=== PATIENT | male | born 1955 | race African-American/Black ===

== ENCOUNTER 2020-01-13 21:20 | Emergency (ER) | payer OTHER ==
[~2020-01-13] VITALS: Ht 177.8 cm; Wt 91.0 kg
[2020-01-13 22:45] VITALS: BP 110/64
[2020-01-13] MEDS ORDERED: DIPHENHYDRAMINE 25MG CAPSULE PO ONE (23:45)
[2020-01-13] MEDS ORDERED: ACETAMINOPHEN 325MG TABLET PO ONE (23:45)
== END 2020-01-14 00:25 | disposition home or self-care (01) ==
LOC: ER 21:20
DX: M25.521 Pain in right elbow (principal); R21 Rash and other nonspecific skin eruption; I10 Essential (primary) hypertension; Z98.890 Other specified postprocedural states; Z88.0 Allergy status to penicillin
CPT/HCPCS: 99283; Q0163

== ENCOUNTER 2022-11-01 08:39 | Emergency (ER) | payer MEDICARE, OTHER ==
[~2022-11-01] VITALS: Ht 177.8 cm; Wt 115.0 kg
[2022-11-01 09:10] VITALS: TEMP 98.7; O2SAT 100
[2022-11-01 12:00] VITALS: BP 133/68; PULSE 95; RESP 17
[2022-11-01] MEDS ORDERED: PHENYLEPHRINE/SHK LV/MO/PET RECTAL OINTMENT 57GM PR SCH (12:00)
[2022-11-01] MEDS ORDERED: KETOROLAC 30MG/ML VIAL IM ONE (12:00)
[2022-11-01] MEDS ORDERED: PHENYLEPH/PRAMOXIN/GLYCR/PET RECTAL CREAM 26GM PR NR (12:15)
[2022-11-01 12:42] LABS: BASOPHILS % 0.8 % (0.0-2.0); EOSINOPHILS % 0.4 % (0.0-5.0); HEMATOCRIT. 39.8 % (42.0-52.0); HEMOGLOBIN. 13.3 g/dL (14.0-18.0); LYMPHOCYTES % 14.4 % (20.0-50.0); MEAN CORPUSCULAR HEMOGLOBIN 28.5 pg (28.0-32.0); MEAN CORPUSCULAR HGB CONC 33.4 g/dL (31.0-37.0); MEAN CORPUSCULAR VOLUME 85.5 fL (80.0-94.0); MONOCYTES % 5.9 % (2.0-8.0); NEUTROPHILS % 78.5 % (40.0-76.0); PLATELET 145 x1000/uL (130-400); RED BLOOD CELL COUNT 4.65 mill/uL (4.7-6.1); RED CELL DISTRIBUTION WIDTH 14.2 % (11.6-14.6); WHITE BLOOD COUNT 11.1 x1000/uL (4.5-11.0)
[2022-11-01 12:54] LABS: CHLORIDE 103 mEq/L (98-107); INDEX HEMOLYSI 1 (1-3); INDEX ICTERIC 1 (1-4); INDEX LIPEMIC 1 (1-3); POTASSIUM 3.8 mEq/L (3.5-5.1); SODIUM 137 mEq/L (136-145)
[2022-11-01 13:06] LABS: ALANINE AMINOTRANSFERASE 85 IU/L (13-61); ALBUMIN 3.6 g/dL (3.4-5.0); ASPARTATE AMINOTRANSFERASE 52 IU/L (15-37); BILIRUBIN TOTAL 0.8 mg/dL (0.1-1.0); CALCIUM 9.2 mg/dL (8.5-10.1); CARBON DIOXIDE 26 mEq/L (21-32); GLUCOSE 296 mg/dL (70-105); PROTEIN TOTAL 7.3 g/dL (6.0-8.3); UREA NITROGEN BLOOD 15 mg/dL (7-21)
[2022-11-01] MEDS ORDERED: PHEN51CR24 TP (13:20)
[2022-11-01] MEDS ORDERED: TOPUD MT ×2 (13:20→13:21)
[2022-11-01] MEDS ORDERED: DOCU-150 MT (13:20)
[2022-11-01] MEDS ORDERED: HYDR26CR2 TP (13:21)
[2022-11-01] MEDS ORDERED: DOCU100T MT (13:21)
== END 2022-11-01 14:23 | disposition home or self-care (01) ==
LOC: ER 08:39
DX: K64.9 Unspecified hemorrhoids (principal); E11.9 Type 2 diabetes mellitus without complications; E78.00 Pure hypercholesterolemia, unspecified; I10 Essential (primary) hypertension; Z88.0 Allergy status to penicillin; Z98.890 Other specified postprocedural states
CPT/HCPCS: 99283; 80053; 85025; 36415; 96372; J1885